=== PATIENT | male | born 1970 | race Hispanic/Latino ===

== ENCOUNTER 2022-07-03 17:56 | Emergency (ER) | payer OTHER, BC ==
[2022-07-03] MEDS ORDERED: Fentanyl 100 MCG/2 ML VIAL ONE (18:22)
[2022-07-03 18:30] LABS: #Basophils 0.1 thou/uL (0.0-0.2); #Eosinphils 0.1 thou/uL (0.0-0.7); #Lymphocytes 4.1 thou/uL (1.20-3.40); #Monocytes 0.7 thou/uL (0.11-0.59); #Neutrophils 4.9 thou/uL (1.40-6.50); %Basophils 0.7 % (0.0-1.0); %Eosinophils 1.1 % (0.0-10.0); %Lymphocytes 41.8 % (21.0-51.0); %Monocytes 6.8 % (0.0-10.0); %Neutrophils 49.6 % (42.0-75.0); Hemoglobin 15.4 g/dL (14.0-18.0); Mean Corpuscular HGB CONC 32.7 g/dL (32.0-36.0); Mean Corpuscular Volume 97.8 fl (78.0-98.0); Mean Platelet Volume 16.6 fL (7.4-10.4); Platelet Count 183 10x3/uL (130-400); RBC Distribution Width 11.9 % (11.5-14.5); White Blood Cell (WBC) Count 9.8 10x3/uL (4.8-10.8)
[2022-07-03] MEDS ORDERED: Ondansetron PF 4 MG/2 ML Vial ONE (18:32)
[2022-07-03 18:42] LABS: Anion Gap 16 mmol/L (10-20); BUN (Urea Nitrogen) 14 mg/dL (8.4-25.7); Calc. Creatinine Clearance 0 mL/min (70-130); Calcium 9.6 mg/dL (7.8-10.44); Carbon Dioxide 21 mmol/L (22-29); Chloride 107 mmol/L (98-107); Estimated GFR 104; Glucose 82 mg/dL (70-105); Potassium 3.4 mmol/L (3.5-5.1); Sodium 141 mmol/L (136-145)
[2022-07-03] MEDS ORDERED: Amoxicillin/Potassium Clav 875 MG TAB ONE (19:13)
== END 2022-07-03 19:30 | disposition home or self-care (01) ==
LOC: NAV ERS 17:56
DX: S62.636B Displaced fracture of distal phalanx of right little finger, initial encounter for open fracture (principal); I10 Essential (primary) hypertension; F17.210 Nicotine dependence, cigarettes, uncomplicated; W31.1XXA Contact with metalworking machines, initial encounter; Z79.899 Other long term (current) drug therapy
CPT/HCPCS: 80048; 85025; 96374; 96375; J2405; J3010